=== PATIENT | female | born 1930 | race Hispanic/Latino ===

== ENCOUNTER 2018-05-04 20:05 | Emergency (ER) | payer MEDICARE ==
[~2018-05-04 20:05] MED LIST: AMLO5TAB4 PO; ASPI-555 PO; BIMA12.5OS OU; CLON.1 PO; DORZ10DR10 OU; LABE200T28 PO; LOSA1TAB54 PO; METF-446 PO; SIMV10TA6 PO
[2018-05-04 20:41] LABS: HEMATOCRIT 39.6 % (36-48); LYMPHOCYTES % (AUTO) 27.8 % (21.0-51.0); MEAN CORPUSCULAR HEMOGLOBIN 30.6 pg (27.0-33.0); MEAN CORPUSCULAR HGB CONC 33.4 g/dL (32.0-36.0); MEAN CORPUSCULAR VOLUME 91.4 fL (79-99); MONOCYTES % (AUTO) 5.8 % (3.0-13.0); NEUTROPHILS % (AUTO) 60.4 % (40.0-77.0); PLATELET COUNT (AUTO) 317 K/uL (130-400); RED BLOOD CELL COUNT(AUTO) 4.33 MIL/uL (4.00-5.50); RED CELL DISTRIBUTION WIDTH 13.9 % (11.0-15.5); WHITE BLOOD COUNT (AUTO) 8.1 K/uL (4.8-10.8)
[2018-05-04 20:52] LABS: CREATININE 0.9 mg/dL (0.5-1.5)
[2018-05-04 20:59] LABS: ALBUMIN 3.6 g/dL (3.5-5.0); BILIRUBIN,TOTAL 0.2 mg/dL (0.2-1.0); TOTAL PROTEIN, SERUM 7.4 g/dL (6.0-8.3)
[2018-05-04] MEDS ORDERED: LISINOPRIL 5 MG TABLET ONE (21:27)
[2018-05-04] MEDS ORDERED: MECLIZINE HCL 25 MG TABLET ONE (21:27)
== END 2018-05-04 23:26 | disposition home or self-care (01) ==
LOC: EDH 20:05
DX: I16.0 Hypertensive urgency (principal); H81.10 Benign paroxysmal vertigo, unspecified ear; E11.9 Type 2 diabetes mellitus without complications; E78.5 Hyperlipidemia, unspecified; E11.39 Type 2 diabetes mellitus with other diabetic ophthalmic complication; H42 Glaucoma in diseases classified elsewhere; Z90.49 Acquired absence of other specified parts of digestive tract; Z90.710 Acquired absence of both cervix and uterus
CPT/HCPCS: 36415; 80053; 85025; 93005

== ENCOUNTER → 2018-06-05 | Outpatient (CLI) | payer OTHER, SELFPAY | END | disposition home or self-care (01) | LOC: OIH 13:30 | PROVIDERS: ATTEND Internal Medicine Cardiovascular Disease | DX: Z13.6 Encounter for screening for cardiovascular disorders (principal); K44.9 Diaphragmatic hernia without obstruction or gangrene; I51.7 Cardiomegaly | CPT/HCPCS: 75571 ==

== ENCOUNTER → 2018-06-13 | Outpatient (CLI) | payer MEDICARE | END | disposition home or self-care (01) | LOC: SHCH 11:05 | PROVIDERS: ATTEND Internal Medicine Cardiovascular Disease | DX: I34.0 Nonrheumatic mitral (valve) insufficiency (principal); I35.8 Other nonrheumatic aortic valve disorders; I51.7 Cardiomegaly | CPT/HCPCS: 93306 ==

== ENCOUNTER → 2018-06-19 | Outpatient (CLI) | payer MEDICARE | END | disposition home or self-care (01) | LOC: SHCH 08:13 | PROVIDERS: ATTEND Internal Medicine Cardiovascular Disease | DX: N28.1 Cyst of kidney, acquired (principal); I73.9 Peripheral vascular disease, unspecified; I10 Essential (primary) hypertension; M79.89 Other specified soft tissue disorders | CPT/HCPCS: 93925; 93975 ==

== ENCOUNTER 2018-07-23 07:33 | Day surgery (SDC) | payer MEDICARE ==
[2018-07-19 08:30] VITALS: BP 193/90
[2018-07-19 08:53] LABS: APPEARANCE,URINE Cloudy (CLEAR); BILIRUBIN,URINE Negative (NEGATIVE); COLOR,URINE Yellow (YELLOW); GLUCOSE, URINE (UA) Negative (NEGATIVE); KETONES,URINE Trace mg/dL (NEGATIVE); LEUKOCYTE ESTERASE ,URINE Moderate (NEGATIVE); NITRATE,URINE Negative (NEGATIVE); OCCULT BLOOD,URINE Negative (NEGATIVE); PROTEIN,URINE Trace (NEGATIVE)
[2018-07-19 08:54] LABS: BASOPHILS % (AUTO) 1.1 % (0.0-5.0); EOSINOPHILS % (AUTO) 5.1 % (0.0-8.0); HEMATOCRIT 39.5 % (36-48); LYMPHOCYTES % (AUTO) 25.1 % (21.0-51.0); MEAN CORPUSCULAR HEMOGLOBIN 30.8 pg (27.0-33.0); MEAN CORPUSCULAR HGB CONC 33.1 g/dL (32.0-36.0); MONOCYTES % (AUTO) 7.6 % (3.0-13.0); NEUTROPHILS % (AUTO) 61.1 % (40.0-77.0); PLATELET COUNT (AUTO) 318 K/uL (130-400); RED BLOOD CELL COUNT(AUTO) 4.25 MIL/uL (4.00-5.50); RED CELL DISTRIBUTION WIDTH 13.4 % (11.0-15.5); WHITE BLOOD COUNT (AUTO) 7.2 K/uL (4.8-10.8)
[2018-07-19 09:09] LABS: CREATININE 0.8 mg/dL (0.5-1.5); POTASSIUM 3.9 mmol/L (3.5-5.1)
[2018-07-19 09:13] LABS: INR 0.94 (0.85-1.15); PARTIAL THROMBOPLASTIN TIME 27.5 SEC (26.3-35.5); PROTHROMBIN TIME 9.9 SEC (9.6-11.6)
--- NOTE | 2018-07-19 09:25 | NUR ---
BP ELEVATED BLOOD PRESSURE, PATIENT DENIES BLURRED VISION, DENIES HEADACHE, DENIES DIZZINESS, DENIES CHEST PAIN AND STATED SHE HAS NOT TAKEN HER MORNING MEDICATION. PATIENT TOOK MEDICATION AT THIS TIME
[2018-07-19 09:49] LABS: BACTERIA,URINE Few /HPF (None Seen); RBC,URINE 0-1 /HPF (0-1)
--- NOTE | 2018-07-19 09:50 | NUR ---
RECHECK BP 198/83 PAGED I WALTER PAC FOR DR ELMORE, CALL PENDING
--- NOTE | 2018-07-19 10:05 | NUR ---
INFORMED Armando YOUSIF ELEVATED BP WAS PRIOR TO TAKING HER MORNING MEDICATION, HER BP IS 180/89 ON RIGHT AND 185/78 ON LEFT ARM, Armando YOUSIF GAVE NO NEW ORDERS OK TO PROCEED WITH PLANNED PROCEDURE
--- NOTE | 2018-07-22 11:10 | NUR ---
ABNORMAL UA NOTIFIED NUPUR MENDOSA OF PT'S UA- NITRATES NEGATIVE, LEUKEST MODERATE, U WBC 2-5. NO FURTHER ORDERS GIVEN.
[2018-07-23] VITALS (13 sets, daily range): BP systolic 118–211; BP diastolic 57–82
[~2018-07-23] VITALS: Ht 148.6 cm; Wt 61.7 kg
[~2018-07-23 07:33] MED LIST changes: +0.9 % SODIUM CHLORIDE 1,000 ML IV SCH; +AMLO10TA7 PO; -AMLO5TAB4 PO; -BIMA12.5OS OU; +CALCIUM PO; -DORZ10DR10 OU; +FISH1CAP49 PO; -LABE200T28 PO; +LABE200T5 PO; +LEVO25TA54 PO; -LOSA1TAB54 PO; +LOSA50TA64 PO
[2018-07-23] MEDS ORDERED: ACETAMINOPHEN EXTENDED RELEASE 650 MG TABLET PO SCH (08:00)
[2018-07-23] MEDS ORDERED: SODIUM CHLORIDE 0.9% 1000ML 1,000 ML IV ONE (08:13)
--- NOTE | 2018-07-23 08:25 | NUR ---
RECEIVED ALERT,ORIENTED X3 ,IN GOOD SPIRITS ,ACCOMPANIED BY DAUGHTER,NO COMPLAINTS OF PAIN ,,INSTRUCTIONS GIVEN TO PATIENT AND DAUGHTER ON POST OP CATH,TO LYE FLAT IN BED ,NO LIFTING OF HEAD ,UNTIL INSTRUCTED BY NURSE,VERBALIZES UNDERSTANDING,,,CALL BURTON IN REACH Addendum: 07/23/18 at 1013 by JAYCE LOFTON LVN LVN STATES FX LT ANKLE BONE BACK IN 1978 ,NEVER TOOK CARE OF IT,STATES SWELLING SINCE THEN,,,,,AND NOTICED SCAR TO RT GROIN ,STATES DUE TO VEIN STRIPPING ,MORE THEN 5 YEARS
--- NOTE | 2018-07-23 10:36 | NUR ---
RESTING COMFORTABLY ,TALKING WITH DAUGHTER ,NO DISCOMFORT,STATES FEELS FINE.,CALL BURTON IN REACH Addendum: 07/23/18 at 1037 by JAYCE LOFTON LVN LVN Amended: Links added.
[2018-07-23] MEDS ORDERED: HEPARIN SODIUM 1000UNIT/ML 10ML VIAL ONE (10:37)
[2018-07-23] MEDS ORDERED: SODIUM BICARB 50MEQ 50ML VIAL ONE (10:37)
[2018-07-23] MEDS ORDERED: LIDOCAINE HCL 2% 20ML ONE (10:38)
[2018-07-23] MEDS ORDERED: NITROGLYCERIN 5 MG/ML 10 ML VIAL IV ONE (10:38)
[2018-07-23] MEDS ORDERED: IOHEXOL 350 MG/ML 100ML INFUS..BTL IV ONE (10:38)
[2018-07-23] MEDS ORDERED: IOHEXOL-350 50ML VIAL IV ONE (10:38)
--- NOTE | 2018-07-23 10:55 | NUR ---
TO SQUARE CUTTER VIA STRETCHER ,ACCOMPANIED BY NISHA HIGUERA,,,,,,AWARE OF PT WITH SCAR TO RT GROIN ,DUE TO VEIN STRIPPING STATES,ASSISTED PT TO BR PRIOR TO GOING TO SQUARE CUTTER
[2018-07-23] MEDS ORDERED: MIDAZOLAM HCL 1 MG/ML 2ML VIAL ONE (11:08)
[2018-07-23] MEDS ORDERED: MEPERIDINE-PF 25 MG/ML SYG ONE (11:08)
[2018-07-23] MEDS ORDERED: SODIUM CHLORIDE 0.9% 1000ML 1,000 ML IV SCH (12:08)
[2018-07-23] MEDS ORDERED: DEXTROSE 50%-WATER 50 ML DISP.SYRIN IV PRN (12:15)
[2018-07-23] MEDS ORDERED: ACETAMINOPHEN-CODEINE 300/30MG TAB PO PRN ×2 (12:15)
[2018-07-23] MEDS ORDERED: GLUCAGON 1MG KIT 1 MG ML IM PRN (12:15)
--- NOTE | 2018-07-23 12:15 | NUR ---
RECEIVED PATIENT VIA BED ,WITH MARGARITA RN AND NISHA RN ,PT AWAKE ALERT ,NO COMPLAINTS OF DISCOMFORT ,SITE TO RT GROIN DRESSING CLEAN AND DRY,WITH PEDAL PULSES PRESENT STRONG, AND TIBIAL WEAK ,PALPABLE ,REINFORCED TO STAY FLAT IN BED ,NO LIFTING OF HEAD UNTIL NURSE TELLS HER SHE CAN ,CALL BURTON IN REACH,VERBALIZE UNDERSTANDING
--- NOTE | 2018-07-23 12:25 | NUR ---
LOG ROLL AND PUT ON BEDPAN WITH 2 NURSES ,VOIDS 300 ML CLEAR YELLOW URINE,
--- NOTE | 2018-07-23 13:18 | NUR ---
CORRECTION TO DOCUMENTATION DONE AT 804,BILATERAL POSTERIOR TIBIAL PULSES WERE FOUND TO BE PALPABLE BUT WEAK DURING INITIAL ASSESSMENT
--- NOTE | 2018-07-23 15:45 | NUR ---
INSTRUCTED DAUGHTER ON HOW TO CHECK ON GROIN ,RETURNS DEMONSTRATION,VERBALIZES UNDERSTANDING
--- NOTE | 2018-07-23 15:55 | NUR ---
ASSISTED TO SIT UP IN BED ,,WITH 2 STAFF MEMBERS,,,,DOES WELL ,WANTS TO USE BED ABREU ,ASSISTED TO BED ABREU ,VOIDS 200 ML CLEAR YELLOW URINE,,,,NO COMPLAINTS OF DISCOMFORT
--- NOTE | 2018-07-23 16:05 | NUR ---
SITTING UP IN BED ,B/P--118/62 61-16--99O2 SAT ,STATES FEELS FINE ,WILL MONITOR,,CALL BURTON IN REACH
[2018-07-23] MEDS ORDERED: INSULIN HUMULIN R 100 UNIT/ML 3ML SQ SCH (16:30)
--- NOTE | 2018-07-23 16:30 | NUR ---
SITTING ON SIDE OF BED ,B/P--211/86-94-62--98%-O2 SAT,NO COMPLAINTS OF DISCOMFORT,,ASYMPTOMATIC,WANTS TO GO HOME ,,
--- NOTE | 2018-07-23 16:40 | NUR ---
GETTING COMFORTABLE IN BED ,RETAKING B/P ON LT ARM----192/72--64--12--99% O2 SAT,,MAXINE ESPITIA TEXT ,,ASYMPTOMATIC
--- NOTE | 2018-07-23 17:00 | NUR ---
MAXINE ESPITIA ANSWERS ,ORDERS TO GIVE CLONIDINE 0.1 MG PO
[2018-07-23] MEDS ORDERED: CLONIDINE HCL 0.1 MG TABLET ONE (17:09)
--- NOTE | 2018-07-23 17:10 | NUR ---
B/P TAKEN PRIOR TO GIVING CLONIDINE---150/66---62---15---98%O2 SAT,,,NOT GIVEN ,,DISCHARGE INSTRUCTIONS REINFORCED TO DAUGHTER AND PT ,VERBALIZE UNDERSTANDING,,,PT WITH NO COMPLAINTS
--- NOTE | 2018-07-23 17:30 | NUR ---
RECHECKED RT GROIN ,NO BLEEDING ,NO HEMATOMA,NO CHANGE ON TIBIAL AND PEDAL PULSES ,TO CAR VIA W/C
[2018-07-23] MEDS ORDERED: CLONIDINE HCL 0.1 MG TABLET PO ONE (18:15)
== END 2018-07-23 17:30 | disposition home or self-care (01) ==
LOC: DAH 07:33
PROVIDERS: ATTEND Internal Medicine Cardiovascular Disease
DX: I25.118 Atherosclerotic heart disease of native coronary artery with other forms of angina pectoris (principal); Z79.899 Other long term (current) drug therapy; Z79.01 Long term (current) use of anticoagulants; E78.5 Hyperlipidemia, unspecified; E11.9 Type 2 diabetes mellitus without complications; I11.0 Hypertensive heart disease with heart failure; I50.32 Chronic diastolic (congestive) heart failure
CPT/HCPCS: 36415; 71045; 80048; 81001; 82948 ×2; 85025; 85610; 85730; 93005; 93458; A4606; C1760; C1894; J1644; J2175; J2250; J3490 ×3; J7030; Q9965; Q9967 ×2; 99156; 99157

== ENCOUNTER → 2019-03-12 | Outpatient (CLI) | payer MEDICARE ==
[~2019-03-12] MED LIST changes: -0.9 % SODIUM CHLORIDE 1,000 ML IV SCH
== END | disposition home or self-care (01) ==
LOC: SHCH 10:00
PROVIDERS: ATTEND Internal Medicine Cardiovascular Disease
DX: I65.23 Occlusion and stenosis of bilateral carotid arteries (principal)
CPT/HCPCS: 93880

== ENCOUNTER 2021-07-20 11:41 | Observation (INO) | payer MEDICARE ==
[~2021-07-20] VITALS: Ht 149.9 cm; Wt 53.2 kg
[~2021-07-20 11:41] MED LIST changes: +AMLO-258 PO; -AMLO10TA7 PO; -ASPI-555 PO; +ASPI-556 PO; -CLON.1 PO; +CLON0.1T2 PO; -SIMV10TA6 PO; +SIMV10TA97 PO
[2021-07-20 12:14] LABS: HEMATOCRIT 35.6 % (36-48); MEAN CORPUSCULAR HEMOGLOBIN 31.3 pg (27.0-33.0); MEAN CORPUSCULAR HGB CONC 33.7 g/dL (32.0-36.0); MEAN CORPUSCULAR VOLUME 92.7 fL (79-99); PLATELET COUNT (AUTO) 300 K/uL (130-400); RED BLOOD CELL COUNT(AUTO) 3.84 MIL/uL (4.00-5.50); RED CELL DISTRIBUTION WIDTH 13.3 % (11.0-15.5); WHITE BLOOD COUNT (AUTO) 7.8 K/uL (4.8-10.8)
[2021-07-20] MEDS ORDERED: ASCO500C18 PO (12:17)
[2021-07-20] MEDS ORDERED: TELM1TAB42 PO (12:17)
[2021-07-20] MEDS ORDERED: LEVO75CA5 PO (12:17)
[2021-07-20] MEDS ORDERED: MULT-1290 PO (12:17)
[2021-07-20] MEDS ORDERED: CHOL25PO8 MC (12:17)
[2021-07-20 12:20] LABS: POTASSIUM 3.7 mmol/L (3.5-5.1)
[2021-07-20 12:28] LABS: ALBUMIN 3.7 g/dL (3.5-5.0); BILIRUBIN,TOTAL 0.6 mg/dL (0.2-1.0); TOTAL PROTEIN, SERUM 7.3 g/dL (6.0-8.3)
[2021-07-20] MEDS ORDERED: 0.9% NACL 500ML IV.SOLN 500 ML IV SCH (12:30)
[2021-07-20] MEDS ORDERED: ONDANSETRON 4MG INJ IVP SCH (12:30)
[2021-07-20 12:45] LABS: PROTHROMBIN TIME 10.9 SEC (9.6-11.6)
[2021-07-20 12:46] LABS: PARTIAL THROMBOPLASTIN TIME 23.9 SEC (26.3-35.5)
[2021-07-20 13:01] LABS: EOSINOPHILS % (MANUAL) 7 % (1-6); LYMPHOCYTES % (MANUAL) 15 % (22-44); MAN.DIFF COMMENT-IMPRESSION MANUAL DIFFERENTIAL; MONOCYTES % (MANUAL) 6 % (2-9); PLATELET MORPHOLOGY COMMENT ADEQUATE; SEGMENTED NEUTROPHILS % 72 % (40-70)
[2021-07-20 13:58] LABS: APPEARANCE,URINE CLEAR (CLEAR); BILIRUBIN,URINE NEGATIVE (NEGATIVE); COLOR,URINE YELLOW (YELLOW); GLUCOSE, URINE (UA) NEGATIVE (NEGATIVE); KETONES,URINE NEGATIVE (NEGATIVE); LEUKOCYTE ESTERASE ,URINE NEGATIVE (NEGATIVE); NITRATE,URINE NEGATIVE (NEGATIVE); OCCULT BLOOD,URINE TRACE-INTACT (NEGATIVE); PH,URINE 7.5 (5.0-8.0); PROTEIN,URINE NEGATIVE (NEGATIVE); UROBILINOGEN,URINE 0.2 mg/dL (0.2-1.0)
[2021-07-20 14:14] LABS: BACTERIA,URINE Rare /HPF (None Seen); RBC,URINE 0-1 /HPF (0-1); WBC,URINE None Seen /HPF (0-1)
[2021-07-20 14:15] LABS: SQUAMOUS EPITHELIAL CELL,UR 0-2 /HPF (0-2)
[2021-07-20] MEDS ORDERED: 0.9% NACL 500ML IV.SOLN 500 ML IV ONE (15:00)
[2021-07-20] MEDS ORDERED: ACETAMINOPHEN 325 MG TAB PO PRN (17:30)
[2021-07-20] MEDS ORDERED: ONDANSETRON 4MG INJ IV PRN (17:30)
[2021-07-20] MEDS: 0.9%NACL 1000ML 1,000 ML IV SCH (18:27)
[2021-07-20] MEDS: AMLODIPINE 5 MG TAB PO SCH (18:27)
[2021-07-20] MEDS: LABETALOL HCL 100 MG TABLET PO SCH (18:28)
[2021-07-20 18:52] LABS: HEMOGLOBIN A1C 6.6 % (4.0-6.0)
[2021-07-20] MEDS: SIMVASTATIN 10 MG TABLET PO SCH (20:43)
[2021-07-20] MEDS: INSULIN HUMULIN R 100 UNIT/ML 3ML SQ SCH (20:52)
[2021-07-20 23:02] VITALS: BP 150/59
[2021-07-20 23:34] VITALS: BP 145/73
[2021-07-21] VITALS (8 sets, daily range): BP systolic 119–159; BP diastolic 62–78
[2021-07-21] MEDS: 0.9%NACL 1000ML 1,000 ML IV SCH (04:13)
[2021-07-21 04:17] LABS: BASOPHILS % (AUTO) 0.3 % (0.0-5.0); EOSINOPHILS % (AUTO) 3.1 % (0.0-8.0); HEMATOCRIT 32.8 % (36-48); LYMPHOCYTES % (AUTO) 15.8 % (21.0-51.0); MEAN CORPUSCULAR HEMOGLOBIN 30.4 pg (27.0-33.0); MEAN CORPUSCULAR HGB CONC 33.2 g/dL (32.0-36.0); MEAN CORPUSCULAR VOLUME 91.4 fL (79-99); MONOCYTES % (AUTO) 8.9 % (3.0-13.0); NEUTROPHILS % (AUTO) 71.4 % (40.0-77.0); PLATELET COUNT (AUTO) 267 K/uL (130-400); RED BLOOD CELL COUNT(AUTO) 3.59 MIL/uL (4.00-5.50); RED CELL DISTRIBUTION WIDTH 13.3 % (11.0-15.5); WHITE BLOOD COUNT (AUTO) 9.2 K/uL (4.8-10.8)
[2021-07-21 04:35] LABS: CREATININE 0.8 mg/dL (0.5-1.5); MAGNESIUM 1.9 mg/dL (1.80-2.40); PHOSPHORUS 3.3 mg/dL (2.5-4.9)
[2021-07-21] MEDS: LEVOTHYROXINE 75 MCG TABLET PO SCH (06:02)
[2021-07-21] MEDS: INSULIN HUMULIN R 100 UNIT/ML 3ML SQ SCH ×4 (06:03→21:00)
[2021-07-21] MEDS ORDERED: KCL 20 MEQ ERTAB PO ONE (07:30)
[2021-07-21] MEDS: LOSARTAN 100 MG TABLET PO SCH (08:28)
[2021-07-21] MEDS: MULTIVITAMIN TABLET PO SCH (08:28)
[2021-07-21] MEDS: AMLODIPINE 5 MG TAB PO SCH (08:29)
[2021-07-21] MEDS: HYDROCHLOROTHIAZIDE 25 MG TABLET PO SCH (08:30)
[2021-07-21] MEDS: LABETALOL HCL 100 MG TABLET PO SCH (08:30)
[2021-07-21] MEDS: ASPIRIN 81 MG EC TAB PO SCH (08:30)
[2021-07-21] MEDS: ASCORBIC ACID 500 MG TAB PO SCH (08:30)
[2021-07-21] MEDS: **HM**(Cholecalciferol (Vitamin D3) (Vitamin D3) 25 MCG PO SCH (08:31)
[2021-07-21] MEDS ORDERED: KCL 20 MEQ ERTAB PO PRN (14:00)
[2021-07-21] MEDS ORDERED: POTASSIUM CHLORIDE 20MEQ/100ML 100 ML IV PRN (14:00)
[2021-07-21] MEDS ORDERED: LIDOCAINE HCL-MPF 1% 2ML VIAL IV PRN (14:00)
[2021-07-21] MEDS ORDERED: POTASSIUM CHLORIDE 10% ELIXIR 20 MEQ/15 ML UDCUP PO PRN (14:00)
[2021-07-21] MEDS ORDERED: DIATR MEGLU/DIATRIZOATE SODIUM 30 ML BOTTLE ONE (14:04)
[2021-07-21] MEDS: D5W-1/2 NS/20MEQ KCL 1,000 ML IV SCH (15:13)
[2021-07-21] MEDS ORDERED: IOHEXOL-350 75 ML VIAL IV ONE (18:49)
[2021-07-21] MEDS: SIMVASTATIN 10 MG TABLET PO SCH (21:19)
[2021-07-22] MEDS: D5W-1/2 NS/20MEQ KCL 1,000 ML IV SCH
[2021-07-22 00:10] VITALS: BP 140/74
[2021-07-22 03:30] VITALS: BP 128/67
[2021-07-22 04:37] LABS: HEMATOCRIT 32.3 % (36-48); MEAN CORPUSCULAR HEMOGLOBIN 31.2 pg (27.0-33.0); MEAN CORPUSCULAR HGB CONC 33.4 g/dL (32.0-36.0); MEAN CORPUSCULAR VOLUME 93.4 fL (79-99); RED BLOOD CELL COUNT(AUTO) 3.46 MIL/uL (4.00-5.50); RED CELL DISTRIBUTION WIDTH 13.9 % (11.0-15.5); RETICULOCYTE % (AUTO) 1.17 % (0.42-2.23); WHITE BLOOD COUNT (AUTO) 7.2 K/uL (4.8-10.8)
[2021-07-22 05:47] LABS: LIPASE < 50 U/L (114-286)
[2021-07-22] MEDS: LEVOTHYROXINE 75 MCG TABLET PO SCH (06:30)
[2021-07-22] MEDS: INSULIN HUMULIN R 100 UNIT/ML 3ML SQ SCH ×2 (06:40→12:26)
[2021-07-22 07:00] VITALS: BP 180/76
[2021-07-22 08:00] VITALS: BP 180/76
[2021-07-22] MEDS: ASCORBIC ACID 500 MG TAB PO SCH (08:39)
[2021-07-22] MEDS: AMLODIPINE 5 MG TAB PO SCH (08:39)
[2021-07-22] MEDS: LABETALOL HCL 100 MG TABLET PO SCH (08:39)
[2021-07-22] MEDS: HYDROCHLOROTHIAZIDE 25 MG TABLET PO SCH (08:39)
[2021-07-22] MEDS: ASPIRIN 81 MG EC TAB PO SCH (08:39)
[2021-07-22] MEDS: MULTIVITAMIN TABLET PO SCH (08:39)
[2021-07-22] MEDS: LOSARTAN 100 MG TABLET PO SCH (08:39)
[2021-07-22] MEDS: **HM**(Cholecalciferol (Vitamin D3) (Vitamin D3) 25 MCG PO SCH (08:42)
[2021-07-22] MEDS ORDERED: FAMOTIDINE 20MG TAB PO SCH (09:00)
[2021-07-22] MEDS ORDERED: CARV12.580 PO (09:59)
[2021-07-22] MEDS ORDERED: AMLO-257 PO (09:59)
[2021-07-22] MEDS ORDERED: BISA-72 PO (10:00)
[2021-07-22] MEDS ORDERED: LACTULOSE 20 GM/30 ML UDCUP PO ONE (10:00)
[2021-07-22 11:00] VITALS: BP 137/73
[2021-07-22] MEDS ORDERED: CARVEDILOL 12.5 MG TABLET PO SCH (21:00)
== END 2021-07-22 13:30 | disposition home or self-care (01) ==
LOC: EDH 11:41 → EDHIP 17:19 → 2AH 22:44
PROVIDERS: ADMIT Internal Medicine; ATTEND Internal Medicine
DX: R55 Syncope and collapse (principal); R42 Dizziness and giddiness; K59.00 Constipation, unspecified; R19.7 Diarrhea, unspecified; E11.9 Type 2 diabetes mellitus without complications; I10 Essential (primary) hypertension; E78.5 Hyperlipidemia, unspecified; H40.9 Unspecified glaucoma; E03.9 Hypothyroidism, unspecified; E78.00 Pure hypercholesterolemia, unspecified; E87.6 Hypokalemia; I25.10 Atherosclerotic heart disease of native coronary artery without angina pectoris; M19.90 Unspecified osteoarthritis, unspecified site; I48.91 Unspecified atrial fibrillation; R47.01 Aphasia; Z98.49 Cataract extraction status, unspecified eye; Z79.82 Long term (current) use of aspirin; Z79.899 Other long term (current) drug therapy; Z79.84 Long term (current) use of oral hypoglycemic drugs; Z90.710 Acquired absence of both cervix and uterus; W18.30XA Fall on same level, unspecified, initial encounter; Y93.89 Activity, other specified; Y92.89 Other specified places as the place of occurrence of the external cause
CPT/HCPCS: 36415 ×3; 70450; 72125; 74177; 80048; 80053; 81001; 82607; 82728; 82746; 82948 ×7; 83036; 83540; 83550; 83690; 83735; 84100; 84132; 84443; 84484 ×4; 85025 ×2; 85027; 85045; 85610; 85730; 93005; 96361 ×4; 96374; 97161; 99285; G0378 ×44; J1815 ×2; J2405; J3480; J7030; J7040; Q9963; Q9967

== ENCOUNTER → 2021-09-14 | Outpatient (CLI) | payer MEDICARE ==
[~2021-09-14] MED LIST changes: +AMLO-257 PO; -AMLO-258 PO; +ASCO500C18 PO; +BISA-72 PO; -CALCIUM PO; +CARV12.580 PO; +CHOL25PO8 MC; -CLON0.1T2 PO; -LABE200T5 PO; -LEVO25TA54 PO; +LEVO75CA5 PO; -LOSA50TA64 PO; +MULT-1290 PO; +TELM1TAB42 PO
== END | disposition home or self-care (01) ==
LOC: SHCH 14:38
PROVIDERS: ATTEND Internal Medicine Cardiovascular Disease
DX: I08.8 Other rheumatic multiple valve diseases (principal); I27.20 Pulmonary hypertension, unspecified; I11.9 Hypertensive heart disease without heart failure; E11.9 Type 2 diabetes mellitus without complications; E78.5 Hyperlipidemia, unspecified
CPT/HCPCS: 93306